=== PATIENT | female | born 1935 | race African-American/Black ===

== ENCOUNTER → 2019-03-08 | Outpatient (CLI) | payer MEDICARE, OTHER ==
[~2019-03-08] MED LIST: ASCO500C15 PO; ASPI-1073 PO; ATEN-42 PO; BETA50CR5 TP; HYDR-3512 PO; ISOSORBIDE PO; LEVO25TA7 PO; MULT1TAB PO; TYLENOL ES PO
== END | disposition home or self-care (01) ==
LOC: CARD 09:24
PROVIDERS: ATTEND Psychiatry & Neurology Neurology
DX: R41.3 Other amnesia (principal)